=== PATIENT | female | born 1960 | race Two or more races ===

== ENCOUNTER 2019-08-03 21:05 | Emergency (ER) | payer OTHER ==
[~2019-08-03] VITALS: Ht 144.8 cm; Wt 66.2 kg
[2019-08-03 21:10] VITALS: Ht 144.8 cm; Wt 66.2 kg
[2019-08-03 22:33] LABS: BASOPHIL % 0.5 % (0-2); PLATELET COUNT 244 x10^3mcL (130-400); RED CELL DISTRIBUTION WIDTH 14.3 % (11.5-14.5)
[2019-08-03 22:47] LABS: ALBUMIN 3.5 g/dL (3.4-5.0); BILIRUBIN TOTAL 0.4 mg/dL (0.20-1.00); CARBON DIOXIDE 32.9 mmol/L (21-32); POTASSIUM SERUM 5.1 mmol/L (3.5-5.1)
[2019-08-03 22:48] LABS: TOTAL PROTEIN, SERUM 8.3 g/dL (6.4-8.2)
[2019-08-03 22:54] LABS: CREATININE SERUM 4.6 mg/dL (0.6-1.0)
[2019-08-04 01:30] VITALS: BP 128/56
== END 2019-08-04 01:30 | disposition home or self-care (01) ==
LOC: ED 21:05
PROVIDERS: Emergency Medicine
DX: R07.89 Other chest pain (principal); I10 Essential (primary) hypertension
CPT/HCPCS: 36415; Q0092